=== PATIENT | female | born 1985 | race Caucasian/White ===

== ENCOUNTER 2018-06-30 05:30 | Inpatient (IN) | payer BC ==
[~2018-06-30] VITALS: Ht 172.7 cm; Wt 83.9 kg
[2018-06-30] VITALS (43 sets, daily range): BP systolic 98–148; BP diastolic 55–92
[~2018-06-30 05:30] MED LIST: ACHYD1T PO; DOCU100C37 PO; IBP800T PO; IBUP-1780 PO; METO-354 PO; OXYC-465 PO; PREN-115 PO
[2018-06-30] MEDS ORDERED: D5 LR IV SOLUTION 1,000 ML IV ONE (07:28)
[2018-06-30] MEDS ORDERED: OXYTOCIN/NORMAL SALINE 500 ML IV ONE (07:28)
[2018-06-30] MEDS ORDERED: D5 LR IV SOLUTION 1,000 ML IV SCH (07:48)
[2018-06-30] MEDS ORDERED: OXYTOCIN/NORMAL SALINE 500 ML IV SCH ×2 (07:48→15:44)
--- NOTE | 2018-06-30 07:48 | History & Physical ---
History and Physical Date Seen by Provider: Jun 30, 2018 Time Seen by Provider: 07:46 This patient is a 32-year-old gravid female. She has had 2 vaginal deliveries prior. She is admitted now for induction of labor secondary to severe oligohydramnios. She is 38 weeks gestation. GBS culture was negative. She denies rupture membranes or bleeding. ROSS yesterday was 48 Allergies are none Medications are vitamins Medical social and surgical histories are per the antepartum record HEENT exam is normal Neck is supple no lymphadenopathy no thyromegaly Abdomen gravid soft nontender nondistended Extreme show no clubbing cyanosis. There is no Homans sign. Pelvic exam is pending Assessment and plan term at 38 weeks gestation with severe oligohydramnios. Plan is for induction of labor. Anticipation is for vaginal delivery. Allergies and Home Medications Allergies Coded Allergies: No Known Drug Allergies (Unverified , 04/26/12) Home Medications Docusate Sodium 100 Mg Capsule, 100 MG PO BID Prescribed by: AJAY RAY on 07/01/18 0804 Ibuprofen 800 Mg Tablet, 800 MG PO Q6H Prescribed by: AJAY RAY on 07/01/18 0804 Oxycodone HCl/Acetaminophen 1 Each Tablet, 1-2 TAB PO Q4H PRN for PAIN Prescribed by: AJAY RAY on 03/21/15 0721 Oxycodone HCl/Acetaminophen 1 Each Tablet, 1 TAB PO Q4H PRN for PAIN-MODERATE Prescribed by: AJAY RAY on 07/01/18 0804 Vit #108/Iron/Fa 1 Each Tablet, 1 EACH PO DAILY, (Reported) Valacyclovir HCl 500 Mg Tablet, 1,000 MG PO BID Prescribed by: AJAY RYA on 07/01/18 0804 Patient Home Medication List Home Medication List Reviewed: Yes AJAY MUSTAFA MD Jun 30, 2018 07:48
[2018-06-30 07:58] LABS: BASOPHILS % (AUTO) 0 % (0-10); EOSINOPHILS % (AUTO) 0 % (0-10); HEMATOCRIT 36 % (35-52); HEMOGLOBIN 12.5 G/DL (11.5-16.0); LYMPHOCYTES # (AUTO) 1.2 X 10^3 (1.0-4.0); LYMPHOCYTES % (AUTO) 15 % (12-44); MEAN CORPUSCULAR HEMOGLOBIN 34 PG (25-34); MEAN CORPUSCULAR HGB CONC 35 G/DL (32-36); MEAN CORPUSCULAR VOLUME 97 FL (80-99); MEAN PLATELET VOLUME 12.2 FL (7.4-10.4); MONOCYTES # (AUTO) 0.5 X 10^3 (0.0-1.0); MONOCYTES % (AUTO) 6 % (0-12); NEUTROPHILS # (AUTO) 6.2 X 10^3 (1.8-7.8); NEUTROPHILS % (AUTO) 79 % (42-75); PLATELET COUNT 132 10^3/uL (130-400); RED BLOOD COUNT 3.69 10^6/uL (4.35-5.85); WHITE BLOOD COUNT 7.9 10^3/uL (4.3-11.0)
[2018-06-30] MEDS ORDERED: ACETAMINOPHEN 500 MG TAB (TYLENOL) PO PRN (08:30)
[2018-06-30] MEDS ORDERED: LACTATED RINGERS 1,000 ML IV ONE ×2 (08:44→10:11)
[2018-06-30] MEDS ORDERED: BUPIVACAINE 0.25% 30 ML (SENSORCAINE) VIAL ONE (09:18)
[2018-06-30] MEDS ORDERED: fentaNYL INJECTION 100 MCG/2 ML AMP ONE (09:18)
[2018-06-30] MEDS ORDERED: SUFENTA 0.6MCG/ML BUPIVA 0.125 100 ML ONE (09:21)
[2018-06-30] MEDS ORDERED: EPIDURAL (SUFENTA 0.6MCG/ML BUPIVA 0.125%) 100 ML BAG EPI SCH (10:15)
[2018-06-30] MEDS ORDERED: NALOXONE 0.4 MG/ML 1 ML (NARCAN) VIAL IV PRN (10:15)
[2018-06-30] MEDS ORDERED: diphenhydrAMINE 50 MG/ML INJ (BENADRYL) IV PRN (10:15)
[2018-06-30] MEDS ORDERED: ONDANSETRON 4 MG/2 ML (SDV) Z0FRAN IV PRN (10:15)
[2018-06-30] MEDS ORDERED: CATHETER FLUSH 10 ML SYR IV PRN (10:15)
[2018-06-30] MEDS ORDERED: LIDOCAINE/EPI 2% 1:200,00 (XYLOCAINE) 10 ML VIAL ONE (13:34)
--- OUTSIDE RECORDS SUMMARY | 2018-06-30 14:06 | XMS REPORT | Clinical Summary ---
Author Author [facility] Address Unknown Phone Unavailable Care Team Providers Care Dental Specialist Name Role Phone PP Unavailable Allergies No Known Allergies Current Medications Prescription Sig. Disp. Refills Start End Date Status Date fexofenadine (CHERELLE) take 1 tablet (180MG) by 30 0 03/26/20 Active 180 MG tablet oral route every day 11 .reconcile (MEDICATION No Sig 1 0 01/21/20 Active LIST IMPORTED) 13 Active Problems Not on file Immunizations Name Dates Previously Given Next Due Td(adult), adsorbed 01/26/2007 Social History Tobacco Use Types Packs/Day Years Used Date Never Assessed Sex Assigned at Date Recorded Not on file Last Filed Vital Signs Vital Sign Reading Time Taken Blood Pressure 100/70 03/26/2011 2:01 PM CDT Pulse - - Temperature - - Respiratory Rate - - Oxygen Saturation - - Inhaled Oxygen - - Concentration Weight 67.1 kg (148 lb) 03/26/2011 2:01 PM CDT Height - - Body Mass Index - - Plan of Treatment Health Maintenance Due Date Last Done Comments Varicella Vaccines (1 of 1999 2 - 2-dose adolescent series) DTaP,Tdap,and Td Vaccines 01/27/2007 01/26/2007 (1 - Tdap) CERVICAL CANCER SCREENING 2007 Influenza Vaccine (#1) 2018 Results Not on filefrom Last 3 Months
--- OUTSIDE RECORDS SUMMARY | 2018-06-30 14:06 | XMS REPORT | Continuity of Care Document ---
Author Author [facility] Organization [facility] Address Unknown Phone Unavailable Allergies Active Description Code Type Severity Reaction Onset Reported/Identified Relationship to Patient Clinical Status Yes No Known Drug Allergies [id number] Drug Allergy Unknown N/A 04/26/2012 Medications There is no data. Problems Date Dx Coded Attending Type Code Diagnosis Diagnosed By 04/21/2012 Ot 623.5 04/21/2012 Ot 644.13 04/21/2012 Ot 654.73 04/28/2012 Ot 648.91 04/28/2012 Ot 659.71 04/28/2012 Ot V02.51 04/28/2012 Ot V04.81 04/28/2012 Ot V06.1 04/28/2012 Ot V27.0 03/01/2015 AJAY MUSTAFA MD Ot 644.03 03/11/2015 RAJ CENTENO DO Ot 644.03 03/21/2015 MOON ESPINO, AJAY Arana Ot 729.5 03/22/2015 AJAY MUSTAFA MD Ot 659.71 03/22/2015 AJAY MUSTAFA MD Ot 663.31 03/22/2015 AJAY MUSTAFA MD Ot V06.1 03/22/2015 AJAY MUSTAFA MD Ot V27.0 04/04/2015 AJAY MUSTAFA MD Ot 729.5 Procedures There is no data. Results There is no data. Encounters ACCT No. Visit Date/Time Discharge Status Pt. Type Provider Facility Loc./Unit Complaint [id number] 03/20/2015 07:12:00 03/22/2015 12:05:00 DIS Inpatient AJAY MUSTAFA MD [facility] LDRP [id number] 03/19/2015 15:45:00 03/19/2015 23:59:59 CLS Outpatient AJAY MUSTAFA MD [facility] [id number] 03/11/2015 13:28:00 03/11/2015 14:50:00 DIS Outpatient RAJ CENTENO DO [facility] [id number] 03/01/2015 14:22:00 03/01/2015 16:56:00 DIS Outpatient AJAY MUSTAFA MD [facility] [id number] 04/26/2012 06:43:00 Document Registration [id number] 04/21/2012 17:21:00 Document Registration 09/10/15 04/22/2018 09:57:49 04/22/2018 23:59:59 CLS Outpatient Adali Garza
[2018-06-30] MEDS ORDERED: MEASLES,MUMPS,RUBELLA 1 EA INJ SC ONE (15:45)
[2018-06-30] MEDS ORDERED: oxyCODONE/APAP 5/325MG (PERCOCET 5) TABLET PO PRN (15:45)
[2018-06-30] MEDS ORDERED: ONDANSETRON 4 MG/2 ML (SDV) Z0FRAN IVP PRN (15:45)
[2018-06-30] MEDS ORDERED: BENZOCAINE/MENTHOL (DERMOPLAST) 56 ML CAN TP PRN (15:45)
[2018-06-30] MEDS ORDERED: TETANUS,DIPTH,PERTUSS P/F (BOOSTRIX) 0.5 ML VIAL IM ONE (15:45)
[2018-06-30] MEDS: KETOROLAC 30 MG/ML VIAL IV SCH ×2 (17:09→23:20)
[2018-06-30] MEDS: DOCUSATE SODIUM 100 MG (COLACE) CAP PO SCH (20:53)
--- NOTE | 2018-06-30 23:54 | OPERATIVE REPORT ---
DATE OF SERVICE: 06/30/2018 DELIVERY NOTE The patient delivered by term spontaneous vaginal delivery a viable male with Apgars of 8 and 9 at 1 and 5 minutes respectively, weight 7 pounds 3 ounces, time of 14:47. Cord blood pH of 7.21. The was delivered over a first-degree perineal laceration under epidural analgesia with 3 pushes from about a -1 station. The was bulb suctioned on delivery of the head and again on completion of delivery. The infant was quickly pink, moved all extremities, had spontaneous lusty cry, had excellent tone and reflexes. When the cord was relatively pulseless, it was doubly clamped. Father cut the cord. The baby was passed to mom's abdomen. The placenta delivered promptly spontaneously Marie. It was normal with 3-vessel cord. The cervix, rectum, vagina and perineum were examined and found intact except for the second-degree perineal laceration, which was somewhat irregular and jagged and was more to the right side of the perineum and there was left labia minora inner aspect first-degree laceration. Both of these were repaired, each with a single suture of 3-0 Vicryl Rapide in the usual manner to good reapproximation and good hemostasis. Sponge and needle counts were correct on completion of delivery and the repair. Estimated blood loss was around 300 mL. The patient tolerated the delivery well and remained in the LDR. The baby remained with the mom. Job ID: [id number] DocumentID: [id number] Dictated Date: 06/30/2018 15:08:04 [employer] Mill Operator Date: 06/30/2018 23:53:43 Dictated By: AJAY MUSTAFA MD
[2018-07-01 01:15] VITALS: BP 84/49
[2018-07-01] MEDS: KETOROLAC 30 MG/ML VIAL IV SCH ×2 (05:30→17:35)
[2018-07-01 05:58] VITALS: BP 98/58
--- NOTE | 2018-07-01 07:04 | Anesthesia-Regional Post-Op ---
Regional Patient Condition Mental Status: Alert, Oriented x3 Circulation: Same as Pre-Op Headache: Absent Sensation: Full Recovery Motor Block: Absent Post Op Complications Complications None Follow Up Care/Instructions Patient Instructions None needed. Anesthesia/Patient Condition Patient is doing well, no complaints, stable vital signs, no apparent adverse anesthesia problems. No complications reported per nursing. D/C home per [facility] Criteria: Yes JONAH GARCIA CRNA Jul 01, 2018 07:04
--- NOTE | 2018-07-01 08:00 | Progress Note-Standard ---
Standard Progress Note Progress Notes/Assess & Plan Date Seen by a Provider: Jul 01, 2018 Time Seen by a Provider: 07:59 Progress/Assessment & Plan This patient is without complaint. She is ambulating, voiding, tolerating oral intake well, has good pain control. Patient does complain of a rash on her face is consistent with contact dermatitis likely due to poison NEVAEH. Vital Signs 07/01/18 05:58 Temp 98.7 Pulse 79 Resp 16 B/P (MAP) 98/58 (71) Pulse Ox 98 O2 Delivery Room Air Vital signs are stable. Patient afebrile. The abdomen is benign. Fundus is firm below the umbilicus and nontender. Extreme show no clubbing cyanosis or edema. There is no Homans sign. Assessment and plan day number 1 doing well plan is for routine convalescence care today and discharge home tomorrow we will start steroid and an antiviral for this rash on her face AJAY MUSTAFA MD Jul 01, 2018 8:00 am
[2018-07-01] MEDS ORDERED: DOCU100C37 PO (08:04)
[2018-07-01] MEDS ORDERED: IBUP-1780 PO (08:04)
[2018-07-01] MEDS ORDERED: VALA500T4 PO (08:04)
[2018-07-01] MEDS ORDERED: Medrol dose pak (08:04)
[2018-07-01] MEDS ORDERED: OXYC1TAB87 PO (08:04)
--- NOTE | 2018-07-01 08:05 | Discharge Instructions ---
Discharge Instructions Discharge Medications New, Converted or Re-Newed RX: RX on Chart Patient Instructions Patient Instructions: As directed Return to The Hospital For: As directed Activity & Diet Discharge Diet: No Restrictions Activity as Tolerated: No Orders-Post D/C & Referrals Follow Up Appt: Call to make follow up appt. for patient in 4 weeks. Activity Per routine post vaginal delivery instructions. Diet as tolerated Patient may shower or tub bathe as desired. AJAY MUSTAFA MD Jul 01, 2018 8:05 am
[2018-07-01 08:15] VITALS: BP 99/65
[2018-07-01] MEDS ORDERED: diphenhydrAMINE 25 MG TAB (BENADRYL) PO PRN (08:15)
[2018-07-01] MEDS: predniSONE 20 MG TAB PO SCH ×2 (09:13→17:45)
[2018-07-01] MEDS: VALACYCLOVIR 500 MG TAB (VALTREX) PO SCH ×2 (09:14→20:46)
[2018-07-01] MEDS: DOCUSATE SODIUM 100 MG (COLACE) CAP PO SCH ×2 (09:14→20:46)
[2018-07-01 11:54] VITALS: BP 111/74
[2018-07-01] MEDS: IBUPROFEN 800 MG (MOTRIN) TAB PO SCH ×2 (11:55→17:45)
[2018-07-01 17:48] VITALS: BP 115/68
[2018-07-02] MEDS: IBUPROFEN 800 MG (MOTRIN) TAB PO SCH (00:38)
[2018-07-02 00:39] VITALS: BP 116/56
[2018-07-02 06:37] VITALS: BP 100/65
[2018-07-02] MEDS: VALACYCLOVIR 500 MG TAB (VALTREX) PO SCH (09:03)
[2018-07-02] MEDS: DOCUSATE SODIUM 100 MG (COLACE) CAP PO SCH (09:03)
[2018-07-02] MEDS: predniSONE 20 MG TAB PO SCH (09:03)
[2018-07-02 09:05] VITALS: BP 123/71
--- NOTE | 2018-07-02 09:27 | Progress Note-Standard ---
Standard Progress Note Progress Notes/Assess & Plan Date Seen by a Provider: Jul 02, 2018 Time Seen by a Provider: 09:26 Progress/Assessment & Plan This patient is without complaint. She is ambulating, voiding, tolerating oral intake well, has good pain control. Patient does complain of a rash on her face is consistent with contact dermatitis likely due to poison NEVAEH. Vital Signs 07/01/18 05:58 Temp 98.7 Pulse 79 Resp 16 B/P (MAP) 98/58 (71) Pulse Ox 98 O2 Delivery Room Air Vital signs are stable. Patient afebrile. The abdomen is benign. Fundus is firm below the umbilicus and nontender. Extreme show no clubbing cyanosis or edema. There is no Homans sign. Assessment and plan day number 1 doing well plan is for routine convalescence care today and discharge home tomorrow we will start steroid and an antiviral for this rash on her face July 02, 2018 This patient is without complaint. She is ambulating, voiding, tolerating oral intake well has good pain control denies chest pain, denies shortness of breath , denies nausea vomiting, and is requesting discharge home. Vital Signs 07/02/18 06:37 Temp 98.3 Pulse 78 Resp 16 B/P (MAP) 100/65 (77) Pulse Ox 99 O2 Delivery Room Air Vital signs are stable. Patient is afebrile. Fundus is firm below the umbilicus and nontender. Extreme show clubbing cyanosis. There is no Homans sign. There is minimal pretibial pitting edema. Assessment and plan day number 2 status post term spontaneous vaginal delivery doing well. Plan is for routine convalescence care with discharge home. Final Diagnosis Term spontaneous vaginal delivery AJAY MUSTAFA MD Jul 02, 2018 9:27 am
== END 2018-07-02 10:27 | disposition home or self-care (01) | DRG 807 ==
LOC: LDRP 07:09
PROVIDERS: ADMIT Obstetrics & Gynecology; ATTEND Obstetrics & Gynecology
PROC: 10E0XZZ Delivery of Products of Conception, External Approach (ICD-10-PCS; principal; 2018-06-30)
PROC: 0KQM0ZZ Repair Perineum Muscle, Open Approach (ICD-10-PCS; 2018-06-30)
PROC: 0HQ9XZZ Repair Perineum Skin, External Approach (ICD-10-PCS; 2018-06-30)
PROC: 3E033VJ Introduction of Other Hormone into Peripheral Vein, Percutaneous Approach (ICD-10-PCS; 2018-06-30)
DX: O41.03X0 Oligohydramnios, third trimester, not applicable or unspecified (principal); O70.1 Second degree perineal laceration during delivery; O70.0 First degree perineal laceration during delivery; O99.73 Diseases of the skin and subcutaneous tissue complicating the puerperium; L23.7 Allergic contact dermatitis due to plants, except food; Z37.0 Single live birth; Z3A.38 38 weeks gestation of pregnancy
CPT/HCPCS: 36415; 85025

== ENCOUNTER → 2018-12-28 | Outpatient (CLI) | payer BC ==
[~2018-12-28] MED LIST changes: +Medrol dose pak; +OXYC1TAB87 PO; +VALA500T4 PO
== END | disposition home or self-care (01) ==
LOC: PREOP 05:34
PROVIDERS: ATTEND Obstetrics & Gynecology
DX: Z01.818 Encounter for other preprocedural examination (principal)

== ENCOUNTER → 2020-02-02 | Outpatient (CLI) | payer OTHER, BC ==
[2020-02-02 13:47] LABS: TOTAL PROTEIN 6.7 GM/DL (6.4-8.2)
[2020-02-02 13:49] LABS: BILIRUBIN,TOTAL 2.4 MG/DL (0.1-1.0)
[2020-02-02 13:52] LABS: BILIRUBIN,DIRECT 0.5 MG/DL (0.0-0.3); BILIRUBIN,INDIRECT 1.9 MG/DL
== END ==
LOC: LABNPT 13:36
PROVIDERS: ATTEND Nurse Practitioner Family
DX: Z01.89 Encounter for other specified special examinations (principal)
CPT/HCPCS: 80076; 82150; 83690